=== PATIENT | male | born 1985 | race Caucasian/White ===

== ENCOUNTER 2019-10-02 17:59 | Emergency (ER) | payer OTHER ==
[~2019-10-02] VITALS: Ht 170.2 cm; Wt 74.8 kg
--- NOTE | 2019-10-02 18:16 | NUR ---
came in for pain and swelling to R foot s/p crush injury with heavy object, to ER bed 9, hooked to monitor, awaiting MD gunter
--- NOTE | 2019-10-02 18:17 | NUR ---
SERENA Whitmore at bedside for eval
--- NOTE | 2019-10-02 19:07 | NUR ---
LOUIE herrera at bedside for application of trina sauceda
--- NOTE | 2019-10-02 19:17 | NUR ---
Patient discharged to home in stable condition. Written and verbal after care instructions given. Patient verbalizes understanding of instruction. wheeled out via wheelchair, picked up by father.
[2019-10-02 19:18] VITALS: BP 122/67
== END 2019-10-02 19:19 | disposition home or self-care (01) ==
LOC: ER 18:04
DX: M79.671 Pain in right foot (principal)
CPT/HCPCS: 73630-TC